=== PATIENT | female | born 1985 | race Caucasian/White ===

== ENCOUNTER 2016-07-10 17:23 | Emergency (ER) | payer MEDICARE, OTHER ==
[2016-07-10] MEDS ORDERED: LORazepam 2 MG/ML SYRINGE IV STA (17:41)
[2016-07-10] MEDS ORDERED: SODIUM CHLORIDE 0.9% 1,000 ML IV STA (17:41)
[2016-07-10 18:00] LABS: Basophils # (A) 0.1 k/uL (0-0.2); Basophils % (A) 1 %; CH 31.5; CHCM 33.2; Eosinophils # (A) 0.2 k/uL (0-0.7); Eosinophils % (A) 2 %; HCT 43.4 % (34.0-46.0); HDW 2.21; HGB 14.1 gm/dL (11.4-16.0); Luc # (Auto) 0.17; Luc % (Auto) 2; Lymphocytes # (A) 3.4 k/uL (1.0-4.8); Lymphocytes % (A) 36 %; MCHC 32.6 g/dL (31.0-37.0); MCV 95.2 fL (80.0-100.0); Mean Platelet Volume 6.2; Monocytes # (A) 0.4 k/uL (0-1.0); Monocytes % (A) 4 %; Neutrophils # (A) 5.3 k/uL (1.3-7.7); Neutrophils % (A) 56 %; RBC 4.55 m/uL (3.80-5.40); RDW 12.7 % (11.5-15.5); WBC 9.5 k/uL (3.8-10.6); WBC (Perox) 9.42
[2016-07-10 18:06] LABS: ALT 40 U/L (9-52); AST 23 U/L (14-36); Alkaline Phosphatase 73 U/L (38-126); Anion Gap 9 mmol/L; Blood Urea Nitrogen 6 mg/dL (7-17); Calcium 9.1 mg/dL (8.4-10.2); Carbon Dioxide 29 mmol/L (22-30); Chloride 104 mmol/L (98-107); Glucose 93 mg/dL (74-99); Non-African American GFR(MDRD) >60 (>60 ml/min/1.73 sqM); Potassium 3.6 mmol/L (3.5-5.1); Sodium 142 mmol/L (137-145); Total Bilirubin 0.5 mg/dL (0.2-1.3); Total Protein 7.1 g/dL (6.3-8.2)
--- NOTE | 2016-07-10 18:13 | ED ---
General Adult HPI - General Chief complaint: Seizure Stated complaint: seizure Time Seen by Provider: 07/10/16 17:41 Source: patient, family, RN/MD, RN notes reviewed, old records reviewed Mode of arrival: wheelchair Limitations: no limitations - History of Present Illness Initial comments: Chief complaint and history of present illness a 31-year-old female had a seizure while in emergency room. The patient is here because her sister who is also an epileptic was having a seizure. She became overly anxious and had a seizure lasted approximately 5 minutes. She was given 1 mg of Ativan and within 1 minute the patient was awake and no postictal state. Denying any headache or pain. Patient reports she has not missed any of her medications her last seizure was over a year and a half ago. - Related Data Home Medications Medication Instructions Recorded Confirmed Albuterol Sulfate [Proair Hfa] 2 puff INHALATION RT-Q4H PRN 03/01/14 07/10/16 Budesonide-Formot 160-4.5 Mcg 2 puff INHALATION RT-BID 03/01/14 07/10/16 [Symbicort 160-4.5 Mcg Inhaler] Lacosamide [Vimpat] 100 mg PO BID 03/01/14 07/10/16 Venlafaxine HCl [Effexor XR] 150 mg PO DAILY 03/01/14 07/10/16 Hydrocodone/Acetaminophen [[place] 1 tab PO Q6HR PRN 12/28/15 07/10/16 7.5-325] levETIRAcetam [Keppra] 750 mg PO TID 07/10/16 07/10/16 Allergies Allergy/AdvReac Type Severity Reaction Status Date / Time amoxicillin [Amoxicillin] Allergy Rash/Hives Verified 07/10/16 17:53 carbamazepine Allergy Unknown Verified 07/10/16 17:53 [From Carbatrol] iodine Allergy Chest Pain Verified 07/10/16 17:53 topiramate [From Topamax] Allergy Unknown Verified 07/10/16 17:53 venom-honey bee Allergy Anaphylaxis Verified 07/10/16 17:53 [bee venom (honey bee)] contrast media Allergy Chest Pain Uncoded 12/28/15 18:21 Review of Systems ROS Statement: Those systems with pertinent positive or pertinent negative responses have been documented in the HPI. Review of systems at this time no headache or visual acuity changes no chest pain or palpitations no abdominal pain no nausea vomiting or diarrhea. Denies any fatigue of late. All systems were otherwise reviewed. Past medical problems significant Past medical problems significant for asthma, seizure disorder which she takes Vimpat and Keppra. Also chronic back pain. Surgeries include appendectomy, back surgery, hysterectomy and foot surgery. Family history sister has epilepsy. Her ALLERGIES include amoxicillin carbamazepine, iodine, topiramate, knees and contrast media. ROS Other: All systems not noted in ROS Statement are negative. Past Medical History Past Medical History: Asthma, Seizure Disorder Additional Past Medical History / Comment(s): chronic back pain depression History of Any Multi-Drug Resistant Organisms: None Reported Past Surgical History: Appendectomy, Back Surgery, Hysterectomy Additional Past Surgical History / Comment(s): foot varicose veins Past Psychological History: Depression Smoking Status: Current every day smoker Past Alcohol Use History: None Reported Past Drug Use History: None Reported General Exam - General Exam Comments Initial Comments: General: The patient is awake and alert, in no distress, and does not appear acutely ill. Patient presented as a visitor and had a seizure while in emergency room. Seizure lasted 5 minutes. Stopped after 1 mg of Ativan. No postictal. Noted. The patient's vital signs show pulse 84 respiratory rate 18 pulse ox 97 % room air blood pressure 149/68. Mildly elevated systolic noted the patient just had a seizure. Eye: Pupils are equal, round and reactive to light, extra-ocular movements are intact ; there is normal conjunctiva bilaterally. No signs of icterus. Ears, nose, mouth and throat: There are moist mucous membranes and no oral lesions. Neck: The neck is supple, there is no tenderness or JVD. The patient had a Kemper collar placed and she was placed on a backboard once her seizure started. Once the seizure stopped patient asked for collar to be removed the collar was removed because she had no neck pain the neck was examined afterwards and she is not complaining of any pain. Patient was removed from the backboard as well. Cardiovascular: There is a regular rate and rhythm. No murmur, rub or gallop is appreciated. Respiratory: Lungs are clear to auscultation, respirations are non-labored, breath sounds are equal. No wheezes, stridor, rales, or rhonchi. Gastrointestinal: Soft, non-distended, non-tender abdomen without masses or organomegaly noted. There is no rebound or guarding present. No CVA tenderness. Bowel sounds are unremarkable. Back: There is no tenderness to palpation in the midline. There is no obvious deformity. No rashes noted. Musculoskeletal: Normal ROM, no tenderness, There is no pedal edema. There is no calf tenderness or swelling. Sensation intact. Pulses equal bilaterally 2+. Neurological: CN II-XII intact, There are no obvious motor or sensory deficits. Coordination appears grossly intact. Speech is normal. Neurologically intact after the seizure. Skin: Skin is warm and dry and no rashes or lesions are noted. Limitations: no limitations Course Vital Signs 07/10/16 17:35 Pulse Rate 84 Respiratory 18 Rate Blood Pressure 149/68 O2 Sat by Pulse 97 Oximetry EKG Findings - EKG Comments: EKG Findings:: EKG was done and reviewed at 17.4 showing normal sinus rhythm no acute ST elevation no ectopy no ischemic changes. Rate 67 NV interval is 142 QRS [address] QT [address] Ramírez Medical Decision Making - Medical Decision Making Medical decision making; patient's white count is 9.5 hemoglobin 14 hematocrit of 43, potassium 3.6 with a BUN 6 creatinine 0.7 and GFR greater than 60. Glucose 93. Patient's feeling better neurologically intact no headache or discomfort to her extremities. The plant this size for the patient be discharged home to care of family reminded that state law she cannot drive for 6 months after having had a seizure. Patient stated she understood. Advised to follow-up with her family doctor and neurologist. Continue with her medications. Get rest stridor stay away from stressful situations - Lab Data Result diagrams: 07/10/16 17:30 07/10/16 17:30 Lab Results 07/10/16 07/10/16 Range/Units 17:30 17:30 WBC 9.5 (3.8-10.6) k/uL RBC 4.55 (3.80-5.40) m/uL Hgb 14.1 (11.4-16.0) gm/dL Hct 43.4 (34.0-46.0) % MCV 95.2 (80.0-100.0) fL MCH 31.0 (25.0-35.0) pg MCHC 32.6 (31.0-37.0) g/dL RDW 12.7 (11.5-15.5) % Plt Count 311 (150-450) k/uL Neutrophils % 56 % Lymphocytes % 36 % Monocytes % 4 % Eosinophils % 2 % Basophils % 1 % Neutrophils # 5.3 (1.3-7.7) k/uL Lymphocytes # 3.4 (1.0-4.8) k/uL Monocytes # 0.4 (0-1.0) k/uL Eosinophils # 0.2 (0-0.7) k/uL Basophils # 0.1 (0-0.2) k/uL Sodium 142 (137-145) mmol/L Potassium 3.6 (3.5-5.1) mmol/L Chloride 104 (98-107) mmol/L Carbon Dioxide 29 (22-30) mmol/L Anion Gap 9 mmol/L BUN 6 L (7-17) mg/dL Creatinine 0.70 (0.52-1.04) mg/dL Est GFR (MDRD) Af Amer >60 (>60 ml/min/1.73 sqM) Est GFR (MDRD) Non-Af >60 (>60 ml/min/1.73 sqM) Glucose 93 (74-99) mg/dL Calcium 9.1 (8.4-10.2) mg/dL Total Bilirubin 0.5 (0.2-1.3) mg/dL AST 23 (14-36) U/L ALT 40 (9-52) U/L Alkaline Phosphatase 73 (38-126) U/L Total Protein 7.1 (6.3-8.2) g/dL Albumin 4.4 (3.5-5.0) g/dL Disposition Clinical Impression: Epileptic seizure Disposition: HOME SELF-CARE Condition: Fair Instructions: Recurrent Seizures in Adults (ED) Additional Instructions: Continue with home medications get adequate rest. Try to stay away from stressful situations. State law states no driving for 6 months after a seizure. Follow-up with family physician and your neurologist. Time of Disposition: 18:56
[2016-07-10 19:18] VITALS: BP 116/57; PULSE 81; RESP 16; TEMP 97.8
== END 2016-07-10 19:18 | disposition home or self-care (01) ==
LOC: EC 17:23
DX: G40.909 Epilepsy, unspecified, not intractable, without status epilepticus (principal); J45.909 Unspecified asthma, uncomplicated; F32.9 Major depressive disorder, single episode, unspecified; F17.200 Nicotine dependence, unspecified, uncomplicated; Z79.51 Long term (current) use of inhaled steroids; Z79.899 Other long term (current) drug therapy; Z88.0 Allergy status to penicillin; Z91.041 Radiographic dye allergy status; Z91.030 Bee allergy status; Z88.8 Allergy status to other drugs, medicaments and biological substances
CPT/HCPCS: 36415; 93005; 80053; 80177; 85025; 99284; 96374; J2060

== ENCOUNTER 2016-12-10 20:04 | Emergency (ER) | payer MEDICARE, OTHER ==
[2016-12-10 20:14] VITALS: TEMP 98
[2016-12-10 20:16] VITALS: RESP 20
[2016-12-10] MEDS ORDERED: LORazepam 2 MG/ML SYRINGE IV STA (20:20)
[2016-12-10] MEDS ORDERED: SODIUM CHLORIDE 0.9% 1,000 ML IV STA (20:20)
[2016-12-10 20:33] LABS: Basophils # (A) 0.1 k/uL (0-0.2); Basophils % (A) 1 %; CH 31.9; Eosinophils # (A) 0.2 k/uL (0-0.7); Eosinophils % (A) 2 %; HCT 38.8 % (34.0-46.0); HDW 2.22; Luc # (Auto) 0.15; Luc % (Auto) 1; Lymphocytes # (A) 3.5 k/uL (1.0-4.8); Lymphocytes % (A) 32 %; MCH 31.7 pg (25.0-35.0); MCHC 33.6 g/dL (31.0-37.0); MCV 94.3 fL (80.0-100.0); Mean Platelet Volume 6.5; Monocytes # (A) 0.5 k/uL (0-1.0); Monocytes % (A) 5 %; Neutrophils # (A) 6.4 k/uL (1.3-7.7); Neutrophils % (A) 59 %; RBC 4.11 m/uL (3.80-5.40); RDW 13.2 % (11.5-15.5); WBC 10.8 k/uL (3.8-10.6); WBC (Perox) 10.22
[2016-12-10 20:46] LABS: ALT 31 U/L (9-52); AST 16 U/L (14-36); Alkaline Phosphatase 56 U/L (38-126); Anion Gap 6 mmol/L; Blood Urea Nitrogen 11 mg/dL (7-17); Calcium 8.6 mg/dL (8.4-10.2); Carbon Dioxide 26 mmol/L (22-30); Chloride 109 mmol/L (98-107); Glucose 92 mg/dL (74-99); Non-African American GFR(MDRD) >60 (>60 ml/min/1.73 sqM); Potassium 3.8 mmol/L (3.5-5.1); Sodium 141 mmol/L (137-145); Total Bilirubin 0.4 mg/dL (0.2-1.3); Total Protein 6.1 g/dL (6.3-8.2)
--- NOTE | 2016-12-10 20:46 | ED ---
General Adult HPI - General Chief complaint: Seizure Stated complaint: Seizure Time Seen by Provider: 12/10/16 20:12 Source: patient, RN notes reviewed Mode of arrival: ambulatory Limitations: no limitations - History of Present Illness Initial comments: 31-year-old female presents to the emergency department with a chief complaint of seizure. Patient has a history of seizure. Patient states that she has not taken her Vimpat 2 days and today she had a seizure. Family states that she did fall and hit her head during the seizure. Patient does admit to mild headache. She has a neck pain or any other pain anywhere else. She states that she has been increased stress lately wishes also provoke or seizures. She has a nausea vomiting with this. She has a loss of bowel or bladder function with seizures. They were concerned due to her hitting her head so they thought that they should be evaluated. They state that her whole body was shaking. Patient denies any recent fever, chills, shortness of breath, chest pain, back pain, abdominal pain, nausea vomiting, numbness or tingling, dysuria or hematuria, constipation or diarrhea, headaches or visual changes, or any other current symptoms. - Related Data Home Medications Medication Instructions Recorded Confirmed Lacosamide [Vimpat] 100 mg PO BID 03/01/14 12/10/16 Hydrocodone/Acetaminophen [[place] 1 tab PO Q6HR PRN 12/28/15 12/10/16 7.5-325] Venlafaxine HCl [Effexor XR] 150 mg PO DAILY 12/10/16 12/10/16 levETIRAcetam [Keppra] 500 mg PO Q12HR 12/10/16 12/10/16 Allergies Allergy/AdvReac Type Severity Reaction Status Date / Time amoxicillin [Amoxicillin] Allergy Rash/Hives Verified 12/10/16 20:33 carbamazepine Allergy Unknown Verified 12/10/16 20:33 [From Carbatrol] iodine Allergy Chest Pain Verified 12/10/16 20:33 topiramate [From Topamax] Allergy Unknown Verified 12/10/16 20:33 venom-honey bee Allergy Anaphylaxis Verified 12/10/16 20:33 [bee venom (honey bee)] contrast media Allergy Chest Pain Uncoded 12/10/16 20:14 Review of Systems ROS Statement: Those systems with pertinent positive or pertinent negative responses have been documented in the HPI. ROS Other: All systems not noted in ROS Statement are negative. Past Medical History Past Medical History: Asthma, Seizure Disorder Additional Past Medical History / Comment(s): chronic back pain depression History of Any Multi-Drug Resistant Organisms: None Reported Past Surgical History: Appendectomy, Back Surgery, Hysterectomy Additional Past Surgical History / Comment(s): foot varicose veins Past Psychological History: Depression Smoking Status: Current every day smoker Past Alcohol Use History: None Reported Past Drug Use History: None Reported General Exam - General Exam Comments Initial Comments: General: The patient is awake and alert, in no distress, and does not appear acutely ill. Eye: Pupils are equal, round and reactive to light, extra-ocular movements are intact; there is normal conjunctiva bilaterally. No signs of icterus. Ears, nose, mouth and throat: There are moist mucous membranes. Neck: The neck is supple, there is no tenderness. Cardiovascular: There is a regular rate and rhythm. No murmur, rub or gallop is appreciated. Respiratory: Lungs are clear to auscultation, respirations are non-labored, breath sounds are equal. No wheezes, stridor, rales, or rhonchi. Gastrointestinal: Soft, non-distended, non-tender abdomen without masses or organomegaly noted. There is no rebound or guarding present. No CVA tenderness. Bowel sounds are unremarkable. Back: There is no tenderness to palpation in the midline. There is no obvious deformity. No rashes noted. Musculoskeletal: Normal ROM, no tenderness, There is no pedal edema. There is no calf tenderness or swelling. Sensation intact. Pulses equal bilaterally 2+. Neurological: CN II-XII intact, There are no obvious motor or sensory deficits. Coordination appears grossly intact. Speech is normal. Skin: Skin is warm and dry and no rashes or lesions are noted. Psychiatric: Cooperative, appropriate mood & affect, normal judgment. Limitations: no limitations Course Vital Signs 12/10/16 20:11 Temperature 98 F Pulse Rate 88 Respiratory 20 Rate Blood Pressure 118/59 O2 Sat by Pulse 97 Oximetry EKG Findings - EKG Comments: EKG Findings:: normal sinus rhythm 80 bpm, normal axis, no atopy, no S-T depressions or elevations, Medical Decision Making - Medical Decision Making 31-year-old female presents to the emergency Department chief complaint of seizure. At this time patient does have a history of seizures and this was much like her normal seizures. Lab work and imaging is reviewed and negative. We are pending seizure medication levels however she states that she did miss her Vimpat last 2 days. We did give her dose of her Vimpat as well as Ativan here. She is a follow-up with her neurologist and morning. We discussed no driving. We discussed return parameters and all questions. Patient stated that she understood she is given plan. She'll be discharged. - Lab Data Result diagrams: 12/10/16 20:23 12/10/16 20:23 Lab Results 12/10/16 12/10/16 Range/Units 20:23 20: WBC 10.8 H (3.8-10.6) k/uL RBC 4.11 (3.80-5.40) m/uL Hgb 13.0 (11.4-16.0) gm/dL Hct 38.8 (34.0-46.0) % MCV 94.3 (80.0-100.0) fL MCH 31.7 (25.0-35.0) pg MCHC 33.6 (31.0-37.0) g/dL RDW 13.2 (11.5-15.5) % Plt Count 309 (150-450) k/uL Neutrophils % 59 % Lymphocytes % 32 % Monocytes % 5 % Eosinophils % 2 % Basophils % 1 % Neutrophils # 6.4 (1.3-7.7) k/uL Lymphocytes # 3.5 (1.0-4.8) k/uL Monocytes # 0.5 (0-1.0) k/uL Eosinophils # 0.2 (0-0.7) k/uL Basophils # 0.1 (0-0.2) k/uL Sodium 141 (137-145) mmol/L Potassium 3.8 (3.5-5.1) mmol/L Chloride 109 H (98-107) mmol/L Carbon Dioxide 26 (22-30) mmol/L Anion Gap 6 mmol/L BUN 11 (7-17) mg/dL Creatinine 0.65 (0.52-1.04) mg/dL Est GFR (MDRD) Af Amer >60 (>60 ml/min/1.73 sqM) Est GFR (MDRD) Non-Af >60 (>60 ml/min/1.73 sqM) Glucose 92 (74-99) mg/dL Calcium 8.6 (8.4-10.2) mg/dL Total Bilirubin 0.4 (0.2-1.3) mg/dL AST 16 (14-36) U/L ALT 31 (9-52) U/L Alkaline Phosphatase 56 (38-126) U/L Total Protein 6.1 L (6.3-8.2) g/dL Albumin 3.7 (3.5-5.0) g/dL - Radiology Data Radiology results: report reviewed, image reviewed Disposition Clinical Impression: Generalized seizure Disposition: HOME SELF-CARE Condition: Stable Instructions: Recurrent Seizures in Adults (ED) Additional Instructions: Please use medication as discussed. Please follow up with family doctor if symptoms have not improved over the next two days. Please return to the emergency room if your symptoms increase or worsen or for any other concerns. Referrals: Harsha Price MD [Primary Care Provider] - 1-2 days Time of Disposition: 21:53
--- NOTE | 2016-12-10 21:01 | CT ---
EXAMINATION TYPE: CT brain wo con DATE OF EXAM: 12/10/2016 COMPARISON: 08/22/2015 HISTORY: Patient complains of seizure today with headache post seizure. Patient has a prior history of seizures. CT DLP: 791.8 mGycm. Automated Exposure Control for Dose Reduction was Utilized. TECHNIQUE: CT scan of the head is performed without contrast. FINDINGS: Ventricles of normal size. There is no mass effect nor midline shift. There is no sign of i ntracranial hemorrhage. The calvarium is intact. IMPRESSION: Negative head CT scan. No change.
[2016-12-10] MEDS ORDERED: LACOSAMIDE 50 MG TABLET PO STA (21:52)
[2016-12-10 22:09] VITALS: BP 132/71; PULSE 92
== END 2016-12-10 22:08 | disposition home or self-care (01) ==
LOC: EC 20:04
DX: G40.909 Epilepsy, unspecified, not intractable, without status epilepticus (principal); F32.9 Major depressive disorder, single episode, unspecified; F17.200 Nicotine dependence, unspecified, uncomplicated; Z88.0 Allergy status to penicillin; Z88.8 Allergy status to other drugs, medicaments and biological substances; Z91.030 Bee allergy status; Z91.041 Radiographic dye allergy status; Z91.048 Other nonmedicinal substance allergy status; Z79.899 Other long term (current) drug therapy
CPT/HCPCS: 99284; 96374; 96361 ×2; 36415; 93005; 80053; 80177; 85025; 70450; J2060

== ENCOUNTER 2016-12-14 12:48 | Emergency (ER) | payer MEDICARE, OTHER ==
[2016-12-14 12:54] VITALS: BP 123/70; PULSE 99; RESP 20; TEMP 97.9
--- NOTE | 2016-12-14 14:08 | ED ---
Wound/Laceration HPI - General Chief Complaint: Wound/Laceration Stated Complaint: Ankle Laceration Time Seen by Provider: 12/14/16 13:45 Source: patient, RN notes reviewed, old records reviewed Mode of arrival: ambulatory Limitations: no limitations - History of Present Illness Initial Comments: 31-year-old feel presenting ED chief complaint of a left ankle laceration. Patient reports that she was walking and tripped over the edge of a fish bowl. She reports that the glass broke and she cut her side of her ankle. She denies any difficulty with flexion or extension. Denies any peripheral paresthesias. She reports that she's had no other injuries. Denies stepping on any glass. Patient reports the bleeding is now well controlled. She is up-to-date on her tetanus vaccination. - Related Data Home Medications Medication Instructions Recorded Confirmed Lacosamide [Vimpat] 100 mg PO BID 03/01/14 12/10/16 Hydrocodone/Acetaminophen [[place] 1 tab PO Q6HR PRN 12/28/15 12/10/16 7.5-325] Venlafaxine HCl [Effexor XR] 150 mg PO DAILY 12/10/16 12/10/16 levETIRAcetam [Keppra] 500 mg PO Q12HR 12/10/16 12/10/16 Allergies Allergy/AdvReac Type Severity Reaction Status Date / Time amoxicillin [Amoxicillin] Allergy Rash/Hives Verified 12/14/16 12:54 carbamazepine Allergy Unknown Verified 12/14/16 12:54 [From Carbatrol] iodine Allergy Chest Pain Verified 12/14/16 12:54 topiramate [From Topamax] Allergy Unknown Verified 12/14/16 12:54 venom-honey bee Allergy Anaphylaxis Verified 12/14/16 12:54 [bee venom (honey bee)] contrast media Allergy Chest Pain Uncoded 12/14/16 12:54 Review of Systems ROS Statement: Those systems with pertinent positive or pertinent negative responses have been documented in the HPI. ROS Other: All systems not noted in ROS Statement are negative. Past Medical History Past Medical History: Asthma, Seizure Disorder Additional Past Medical History / Comment(s): chronic back pain depression History of Any Multi-Drug Resistant Organisms: None Reported Past Surgical History: Appendectomy, Back Surgery, Hysterectomy Additional Past Surgical History / Comment(s): foot varicose veins Past Psychological History: Depression Smoking Status: Current every day smoker Past Alcohol Use History: None Reported Past Drug Use History: None Reported General Exam - General Exam Comments Initial Comments: Patient is a 31 year old female, no acute distress. Limitations: no limitations General appearance: alert, in no apparent distress Head exam: Present: atraumatic, normocephalic, normal inspection Eye exam: Present: normal appearance, PERRL, EOMI. Absent: scleral icterus, conjunctival injection, periorbital swelling ENT exam: Present: normal exam, mucous membranes moist Neck exam: Present: normal inspection. Absent: tenderness, meningismus, lymphadenopathy Respiratory exam: Present: normal lung sounds bilaterally. Absent: respiratory distress, wheezes, rales, rhonchi, stridor Cardiovascular Exam: Present: regular rate, normal rhythm, normal heart sounds. Absent: systolic murmur, diastolic murmur, rubs, gallop, clicks GI/Abdominal exam: Present: soft, normal bowel sounds. Absent: distended, tenderness, guarding, rebound, rigid Extremities exam: Present: normal inspection, full ROM, normal capillary refill. Absent: tenderness, pedal edema, joint swelling, calf tenderness Back exam: Present: normal inspection Neurological exam: Present: alert, oriented X3, CN II-XII intact Psychiatric exam: Present: normal affect, normal mood Skin exam: Present: warm, dry, intact, normal color. Absent: rash Course Vital Signs 12/14/16 12:51 Temperature 97.9 F Pulse Rate 99 Respiratory 20 Rate Blood Pressure 123/70 O2 Sat by Pulse 99 Oximetry Medical Decision Making - Medical Decision Making History of female. No acute distress isn't with a ankle laceration after having cut on glass. She stepped on a fish bowl and the glass broke. She has no puncture wounds or pain over the sole of her foot. Patient's wound was thoroughly irrigated and cleaned. It was closed with 2 sutures. Discussed monitoring for any signs of infection including redness swelling or drainage. Patient agrees to keeping her sutures clean and understands treatment plan will comply. Return parameters were discussed. Disposition Clinical Impression: Laceration of right ankle Disposition: HOME SELF-CARE Condition: Good Instructions: Laceration (ED) Additional Instructions: Please return to the emergency room in 8-10 days to have sutures removed. Please leave wound covered for the first 24-48 hours and then leave open to air after that time. Please use clean soap and water to clean the suture area to prevent scabbing over the top of your sutures. Please watch for any signs of infection which may include but not limited to increased pain, swelling, redness , fever or chills. Please return to the emergency room if any signs of infection do occur. Please return to the emergency room for any other concerns or complications. Referrals: Harsha Price MD [Primary Care Provider] - 1-2 days Time of Disposition: 14:06
== END 2016-12-14 14:33 | disposition home or self-care (01) ==
LOC: EC 12:48
DX: S91.011A Laceration without foreign body, right ankle, initial encounter (principal); G40.909 Epilepsy, unspecified, not intractable, without status epilepticus; F32.9 Major depressive disorder, single episode, unspecified; F17.200 Nicotine dependence, unspecified, uncomplicated; Z88.0 Allergy status to penicillin; Z91.041 Radiographic dye allergy status; Z91.048 Other nonmedicinal substance allergy status; Z88.8 Allergy status to other drugs, medicaments and biological substances; Z91.030 Bee allergy status; Z79.899 Other long term (current) drug therapy; W25.XXXA Contact with sharp glass, initial encounter; Y93.01 Activity, walking, marching and hiking
CPT/HCPCS: 12001; 99283

== ENCOUNTER 2017-08-16 19:56 | Emergency (ER) | payer MEDICARE, OTHER ==
[2017-08-16 20:10] VITALS: TEMP 98.4
[2017-08-16] MEDS ORDERED: SODIUM CHLORIDE 0.9% 1,000 ML IV STA (20:36)
[2017-08-16] MEDS ORDERED: ONDANSETRON 4 MG/2 ML VIAL IVP STA (20:36)
--- NOTE | 2017-08-16 20:40 | ED ---
Nausea/Vomiting/Diarrhea HPI - General Chief complaint: Nausea/Vomiting/Diarrhea Stated complaint: nausea, diarrhea Time Seen by Provider: 08/16/17 20:31 Source: patient, RN notes reviewed Mode of arrival: ambulatory Limitations: no limitations - History of Present Illness Initial comments: This is a 32-year-old female who presents to the emergency department with chief complaint of nausea and diarrhea. Patient states that her symptoms began yesterday. She states that she has had fevers, nausea, diarrhea and body aches. She does report that her was diagnosed 5 days ago with influenza B and she is worried that she may have it as well. She denies abdominal pain, vomiting, constipation, difficulty breathing, dizziness or headache. She states that the last dose of ibuprofen she took was 2 hours ago. - Related Data Home Medications Medication Instructions Recorded Confirmed Lacosamide [Vimpat] 100 mg PO BID 03/01/14 08/16/17 Hydrocodone/Acetaminophen [[place] 1 tab PO Q6HR PRN 12/28/15 08/16/17 7.5-325] Venlafaxine HCl [Effexor XR] 150 mg PO DAILY 12/10/16 08/16/17 levETIRAcetam [Keppra] 500 mg PO Q12HR 12/10/16 08/16/17 Albuterol Inhaler [Ventolin Hfa 1 - 2 puff INHALATION RT-Q6H PRN 08/16/17 Inhaler] Budesonide/Formoterol Fumarate 2 puff INHALATION RT-BID 08/16/17 08/16/17 [Symbicort 160-4.5 Mcg Inhaler] Diazepam [Valium] 5 mg PO BID 08/16/17 08/16/17 Allergies Allergy/AdvReac Type Severity Reaction Status Date / Time amoxicillin [Amoxicillin] Allergy Rash/Hives Verified 08/16/17 20:28 azithromycin Allergy Unknown Verified 08/16/17 20:28 carbamazepine Allergy Unknown Verified 08/16/17 20:28 [From Carbatrol] iodine Allergy Chest Pain Verified 08/16/17 20:28 topiramate [From Topamax] Allergy Unknown Verified 08/16/17 20:28 venom-honey bee Allergy Anaphylaxis Verified 08/16/17 20:28 [bee venom (honey bee)] contrast media Allergy Chest Pain Uncoded 08/16/17 20:10 Review of Systems ROS Statement: Those systems with pertinent positive or pertinent negative responses have been documented in the HPI. ROS Other: All systems not noted in ROS Statement are negative. Past Medical History Past Medical History: Asthma, Seizure Disorder Additional Past Medical History / Comment(s): chronic back pain depression History of Any Multi-Drug Resistant Organisms: None Reported Past Surgical History: Appendectomy, Back Surgery, Hysterectomy Additional Past Surgical History / Comment(s): foot varicose veins Past Psychological History: Anxiety, Depression Smoking Status: Current every day smoker Past Alcohol Use History: None Reported Past Drug Use History: None Reported General Exam - General Exam Comments Initial Comments: General: Awake and alert, well-developed; in no apparent distress. is at bedside. HEENT: Head atraumatic, normocephalic. Pupils are equal, round and reactive to light. Extraocular movements intact. Oropharynx moist without erythema or exudate. Neck: Supple. Normal ROM. Cardiovascular: Regular rate and rhythm. No murmurs, rubs or gallops. Chest symmetrical. Respiratory: Lungs clear to auscultation bilaterally. No wheezes, rales or rhonchi. Normal respiratory effort with no use of accessory muscles. Abdomen: Soft, non-tender, non-distended. No rigidity, rebound or guarding. Normal bowel sounds in all 4 quadrants. Musculoskeletal: Normal ROM, no tenderness bilateral upper and lower extremities. Ambulating normally. Skin: [place], warm and dry without rashes or lesions. Neurological: Alert and oriented x3. CN II-XII grossly intact. Speech is fluent and answers are appropriate. No focal neuro deficits. Psychiatric: Normal mood and affect. No overt signs of depression or anxiety noted. Limitations: no limitations Course Vital Signs 08/16/17 08/16/17 20:08 21:10 Temperature 98.4 F Pulse Rate 104 H 68 Respiratory 18 19 Rate Blood Pressure 139/67 122/58 O2 Sat by Pulse 99 100 Oximetry Medical Decision Making - Medical Decision Making This is a 32-year-old female who presented to the emergency department with chief complaint of nausea and diarrhea x 1 day. Patient's vital signs are stable and she is afebrile. Patient does not complain of any abdominal pain and abdomen is soft and nontender to palpation. Patient is in no acute distress and is drinking a large cup of [employer]'s coffee at bedside. CBC, CMP, UA were unremarkable. Influenza was negative. Patient will be discharged home at this time. Recommended increasing fluid intake as well as taking Tylenol or Motrin as needed for fevers. Patient is in agreement with plan and voices understanding. All questions were answered. - Lab Data Result diagrams: 08/16/17 21:10 08/16/17 21:10 Lab Results 08/16/17 08/16/17 08/16/17 Range/Units 21:10 21:10 21:10 WBC 10.0 (3.8-10.6) k/uL RBC 4.71 (3.80-5.40) m/uL Hgb 14.6 (11.4-16.0) gm/dL Hct 42.6 (34.0-46.0) % MCV 90.3 (80.0-100.0) fL MCH 31.1 (25.0-35.0) pg MCHC 34.4 (31.0-37.0) g/dL RDW 12.5 (11.5-15.5) % Plt Count 348 (150-450) k/uL Neutrophils % 63 % Lymphocytes % 29 % Monocytes % 4 % Eosinophils % 2 % Basophils % 1 % Neutrophils # 6.3 (1.3-7.7) k/uL Lymphocytes # 2.9 (1.0-4.8) k/uL Monocytes # 0.4 (0-1.0) k/uL Eosinophils # 0.2 (0-0.7) k/uL Basophils # 0.1 (0-0.2) k/uL Sodium 141 (137-145) mmol/L Potassium 3.9 (3.5-5.1) mmol/L Chloride 105 (98-107) mmol/L Carbon Dioxide 26 (22-30) mmol/L Anion Gap 10 mmol/L BUN 7 (7-17) mg/dL Creatinine 0.65 (0.52-1.04) mg/dL Est GFR (CKD-EPI)AfAm >90 (>60 ml/min/1.73 sqM) Est GFR (CKD-EPI)NonAf >90 (>60 ml/min/1.73 sqM) Glucose 92 (74-99) mg/dL Calcium 9.2 (8.4-10.2) mg/dL Total Bilirubin 0.3 (0.2-1.3) mg/dL AST 20 (14-36) U/L ALT 29 (9-52) U/L Alkaline Phosphatase 62 (38-126) U/L Total Protein 6.8 (6.3-8.2) g/dL Albumin 4.0 (3.5-5.0) g/dL Urine Color Light Yellow Urine Appearance Clear (Clear) Urine pH 6.5 (5.0-8.0) Ur Specific [place] 1.003 (1.001-1.035) Urine Protein Negative (Negative) Urine Glucose (UA) Negative (Negative) Urine Ketones Negative (Negative) Urine Blood Small H (Negative) Urine Nitrite Negative (Negative) Urine Bilirubin Negative (Negative) Urine Urobilinogen <2.0 (<2.0) mg/dL Ur Leukocyte Esterase Negative (Negative) Urine RBC 1 (0-5) /hpf Urine WBC <1 (0-5) /hpf Ur Squamous Epith Cells 1 (0-4) /hpf Urine Bacteria Rare H (None) /hpf Urine HCG, Qual (Not Detectd) Influenza Type A RNA (Not Detectd) Influenza Type B (PCR) (Not Detectd) 08/16/17 08/16/17 Range/Units 21:10 21:10 WBC (3.8-10.6) k/uL RBC (3.80-5.40) m/uL Hgb (11.4-16.0) gm/dL Hct (34.0-46.0) % MCV (80.0-100.0) fL MCH (25.0-35.0) pg MCHC (31.0-37.0) g/dL RDW (11.5-15.5) % Plt Count (150-450) k/uL Neutrophils % % Lymphocytes % % Monocytes % % Eosinophils % % Basophils % % Neutrophils # (1.3-7.7) k/uL Lymphocytes # (1.0-4.8) k/uL Monocytes # (0-1.0) k/uL Eosinophils # (0-0.7) k/uL Basophils # (0-0.2) k/uL Sodium (137-145) mmol/L Potassium (3.5-5.1) mmol/L Chloride (98-107) mmol/L Carbon Dioxide (22-30) mmol/L Anion Gap mmol/L BUN (7-17) mg/dL Creatinine (0.52-1.04) mg/dL Est GFR (CKD-EPI)AfAm (>60 ml/min/1.73 sqM) Est GFR (CKD-EPI)NonAf (>60 ml/min/1.73 sqM) Glucose (74-99) mg/dL Calcium (8.4-10.2) mg/dL Total Bilirubin (0.2-1.3) mg/dL AST (14-36) U/L ALT (9-52) U/L Alkaline Phosphatase (38-126) U/L Total Protein (6.3-8.2) g/dL Albumin (3.5-5.0) g/dL Urine Color Urine Appearance (Clear) Urine pH (5.0-8.0) Ur Specific [place] (1.001-1.035) Urine Protein (Negative) Urine Glucose (UA) (Negative) Urine Ketones (Negative) Urine Blood (Negative) Urine Nitrite (Negative) Urine Bilirubin (Negative) Urine Urobilinogen (<2.0) mg/dL Ur Leukocyte Esterase (Negative) Urine RBC (0-5) /hpf Urine WBC (0-5) /hpf Ur Squamous Epith Cells (0-4) /hpf Urine Bacteria (None) /hpf Urine HCG, Qual Not Detected (Not Detectd) Influenza Type A RNA Not Detected (Not Detectd) Influenza Type B (PCR) Not Detected (Not Detectd) Disposition Clinical Impression: Nausea, Diarrhea Disposition: HOME SELF-CARE Condition: Good Instructions: Acute Nausea and Vomiting (ED), Acute Diarrhea (ED) Additional Instructions: Please increase fluid intake. Please treat fevers by taking Tylenol and/or Motrin. Please follow up with primary care provider within 1-2 days. Return to emergency department if symptoms should worsen or any concerns arise. Referrals: Harsha Price MD [Primary Care Provider] - 1-2 days Time of Disposition: 21:59
[2017-08-16 21:31] LABS: Basophils # (A) 0.1 k/uL (0-0.2); Basophils % (A) 1 %; Eosinophils # (A) 0.2 k/uL (0-0.7); Eosinophils % (A) 2 %; HCT 42.6 % (34.0-46.0); HGB 14.6 gm/dL (11.4-16.0); Lymphocytes # (A) 2.9 k/uL (1.0-4.8); Lymphocytes % (A) 29 %; MCH 31.1 pg (25.0-35.0); MCHC 34.4 g/dL (31.0-37.0); MCV 90.3 fL (80.0-100.0); Mean Platelet Volume 5.9; Monocytes # (A) 0.4 k/uL (0-1.0); Monocytes % (A) 4 %; Neutrophils # (A) 6.3 k/uL (1.3-7.7); Neutrophils % (A) 63 %; Platelet Count 348 k/uL (150-450); RBC 4.71 m/uL (3.80-5.40); RDW 12.5 % (11.5-15.5)
[2017-08-16 21:32] LABS: Appearance,Urine Clear (Clear); Bacteria,Urine Rare /hpf; Bilirubin,Urine Negative (Negative); Blood,Urine Small (Negative); Color,Urine Light Yellow; Glucose,Urine (UA) Negative (Negative); Ketones,Urine Negative (Negative); Leukocyte Esterase,Urine Negative (Negative); Nitrite,Urine Negative (Negative); PH, Urine 6.5 (5.0-8.0); Protein,Urine Negative (Negative); RBC,Urine 1 /hpf (0-5); Specific Gravity,Urine 1.003 (1.001-1.035); Squamous Epithelial Cell,Urine 1 /hpf (0-4); Urobilinogen,Urine <2.0 mg/dL (<2.0); WBC,Urine <1 /hpf (0-5)
[2017-08-16 21:39] LABS: ALT 29 U/L (9-52); AST 20 U/L (14-36); Alkaline Phosphatase 62 U/L (38-126); Anion Gap 10 mmol/L; Blood Urea Nitrogen 7 mg/dL (7-17); Calcium 9.2 mg/dL (8.4-10.2); Carbon Dioxide 26 mmol/L (22-30); Chloride 105 mmol/L (98-107); Glucose 92 mg/dL (74-99); Potassium 3.9 mmol/L (3.5-5.1); Sodium 141 mmol/L (137-145); Total Bilirubin 0.3 mg/dL (0.2-1.3); Total Protein 6.8 g/dL (6.3-8.2)
[2017-08-16 21:51] VITALS: BP 122/58; PULSE 68; RESP 19
== END 2017-08-16 22:10 | disposition home or self-care (01) ==
LOC: EC 19:56
DX: R11.0 Nausea (principal); R19.7 Diarrhea, unspecified; J45.909 Unspecified asthma, uncomplicated; G40.909 Epilepsy, unspecified, not intractable, without status epilepticus; F41.9 Anxiety disorder, unspecified; F32.9 Major depressive disorder, single episode, unspecified; F17.200 Nicotine dependence, unspecified, uncomplicated; Z79.51 Long term (current) use of inhaled steroids; Z79.899 Other long term (current) drug therapy; Z88.0 Allergy status to penicillin; Z88.1 Allergy status to other antibiotic agents; Z88.8 Allergy status to other drugs, medicaments and biological substances; Z91.048 Other nonmedicinal substance allergy status; Z91.030 Bee allergy status; Z91.041 Radiographic dye allergy status
CPT/HCPCS: 36415; 80053; 81001; 81025; 85025; 87502; 96374; 99284

== ENCOUNTER 2017-09-10 18:56 | Emergency (ER) | payer MEDICARE, OTHER ==
[2017-09-10 18:59] VITALS: BP 145/63; PULSE 75; RESP 18; TEMP 98.7
--- NOTE | 2017-09-10 19:15 | ED ---
Extremity Problem HPI - General Chief complaint: Extremity Problem,Nontraumatic Stated complaint: Finger Swelling Time Seen by Provider: 09/10/17 19:09 Source: patient, RN notes reviewed Mode of arrival: ambulatory Limitations: no limitations - History of Present Illness Initial comments: This is a 32-year-old female who presents to the emergency department with chief complaint of finger swelling and pain. Patient states that she developed pain and swelling to her right middle finger 3 days ago. She states that she has difficulty moving the finger due to pain. She states that the pain is a constant throbbing sensation. She denies any specific injuries or trauma. She states she is unsure if she injured it while she was rearranging her house. States pain is made worse with movement of the finger. Denies fever, chills, chest pain, shortness of breath, abdominal pain, nausea or vomiting,numbness or tingling, headache or vision changes. - Related Data Home Medications Medication Instructions Recorded Confirmed Lacosamide [Vimpat] 100 mg PO BID 03/01/14 08/16/17 Hydrocodone/Acetaminophen [[place] 1 tab PO Q6HR PRN 12/28/15 08/16/17 7.5-325] Venlafaxine HCl [Effexor XR] 150 mg PO DAILY 12/10/16 08/16/17 levETIRAcetam [Keppra] 500 mg PO Q12HR 12/10/16 08/16/17 Albuterol Inhaler [Ventolin Hfa 1 - 2 puff INHALATION RT-Q6H PRN 08/16/17 Inhaler] Budesonide/Formoterol Fumarate 2 puff INHALATION RT-BID 08/16/17 08/16/17 [Symbicort 160-4.5 Mcg Inhaler] Diazepam [Valium] 5 mg PO BID 08/16/17 08/16/17 Allergies Allergy/AdvReac Type Severity Reaction Status Date / Time amoxicillin [Amoxicillin] Allergy Rash/Hives Verified 09/10/17 19:00 azithromycin Allergy Unknown Verified 09/10/17 19:00 carbamazepine Allergy Unknown Verified 09/10/17 19:00 [From Carbatrol] iodine Allergy Chest Pain Verified 09/10/17 19:00 topiramate [From Topamax] Allergy Unknown Verified 09/10/17 19:00 venom-honey bee Allergy Anaphylaxis Verified 09/10/17 19:00 [bee venom (honey bee)] contrast media Allergy Chest Pain Uncoded 09/10/17 19:00 Review of Systems ROS Statement: Those systems with pertinent positive or pertinent negative responses have been documented in the HPI. ROS Other: All systems not noted in ROS Statement are negative. Past Medical History Past Medical History: Asthma, Seizure Disorder Additional Past Medical History / Comment(s): chronic back pain, depression History of Any Multi-Drug Resistant Organisms: None Reported Past Surgical History: Appendectomy, Back Surgery, Hysterectomy Additional Past Surgical History / Comment(s): foot varicose veins Past Psychological History: Anxiety, Depression Smoking Status: Current every day smoker Past Alcohol Use History: None Reported Past Drug Use History: None Reported General Exam - General Exam Comments Initial Comments: General: Awake and alert, well-developed; in no apparent distress. HEENT: Head atraumatic, normocephalic. Pupils are equal, round and reactive to light. Extraocular movements intact. Oropharynx moist without erythema or exudate. Neck: Supple. Normal ROM. Cardiovascular: Regular rate and rhythm. No murmurs, rubs or gallops. Chest symmetrical. Respiratory: Lungs clear to auscultation bilaterally. No wheezes, rales or rhonchi. Normal respiratory effort with no use of accessory muscles. Musculoskeletal: Limited range of motion of PIP and DIP joints of the right middle phalanx due to pain. There is swelling and tenderness noted at the PIP joint. Sensation is intact. Radial pulses are 2+ equal and palpable bilaterally. Skin: [place], warm and dry without rashes or lesions. Neurological: Alert and oriented x3. CN II-XII grossly intact. Speech is fluent and answers are appropriate. No focal neuro deficits. Psychiatric: Normal mood and affect. No overt signs of depression or anxiety noted. Limitations: no limitations Course Vital Signs 09/10/17 18:57 Temperature 98.7 F Pulse Rate 75 Respiratory 18 Rate Blood Pressure 145/63 O2 Sat by Pulse 97 Oximetry Procedures - Orthopedic Splinting/Casting Injury #1 Side: right Upper Extremity Injury Location: finger (3rd phalanx) Upper Extremity Immobilizer: finger (other) Medical Decision Making - Medical Decision Making This is a 33-year-old female who presents to the emergency department with chief complaint of right middle digit swelling and pain. Patient denies any specific injury or trauma. She states that she has difficulty moving the finger due to pain. She does have limited range of motion of the joints of the right middle finger due to pain. Swelling and tenderness noted at the PIP joint. She is neurovascularly intact. X-ray revealed no acute fractures or dislocations. Based on physical examination it appears patient has a sprain or tendinitis to the flexor tendon. Finger splint was applied. Patient tolerated well without complication. I recommended following up with her primary care provider and she will be provided with contact information for follow-up with orthopedics. Patient is in no acute distress and will be discharged home at this time. She is in agreement with plan and voices understanding. All questions were answered. - Radiology Data Radiology results: report reviewed X-ray right finger impression: Soft tissue swelling around the PIP joint. No fracture seen. Disposition Clinical Impression: Finger pain, right Disposition: HOME SELF-CARE Condition: Good Instructions: Tendinitis (ED), Finger Sprain (ED) Additional Instructions: Please rest, ice and use finger splint. Please follow up with Dr. Guerra of [facility] if no improvement in symptoms. May take ibuprofen 600 mg every 6 hours as needed. Please follow up with primary care provider within 1-2 days. Return to emergency department if symptoms should worsen or any concerns arise. Is patient prescribed a controlled substance at d/c from ED?: No Referrals: Harsha Price MD [Primary Care Provider] - 1-2 days Oral Guerra MD [STAFF PHYSICIAN] - 1-2 days Time of Disposition: 19:54
--- NOTE | 2017-09-10 19:39 | XR ---
EXAMINATION TYPE: XR finger RT DATE OF EXAM: 09/10/2017 COMPARISON: NONE HISTORY: Pain and swelling TECHNIQUE: 3 views right middle finger FINDINGS: I see no fracture nor dislocation. There is soft tissue swelling around the PIP joint. Join t spaces are normal. IMPRESSION: Soft tissue swelling. No fracture seen.
== END 2017-09-10 20:08 | disposition home or self-care (01) ==
LOC: EC 18:56
DX: M79.644 Pain in right finger(s) (principal); J45.909 Unspecified asthma, uncomplicated; G40.909 Epilepsy, unspecified, not intractable, without status epilepticus; F32.9 Major depressive disorder, single episode, unspecified; F41.9 Anxiety disorder, unspecified; F17.200 Nicotine dependence, unspecified, uncomplicated; Z79.51 Long term (current) use of inhaled steroids; Z79.899 Other long term (current) drug therapy; Z88.0 Allergy status to penicillin; Z88.1 Allergy status to other antibiotic agents; Z88.8 Allergy status to other drugs, medicaments and biological substances; Z91.030 Bee allergy status; Z91.041 Radiographic dye allergy status; Z91.048 Other nonmedicinal substance allergy status
CPT/HCPCS: 99283

== ENCOUNTER 2017-09-23 23:52 | Emergency (ER) | payer MEDICARE, OTHER ==
[2017-09-24] VITALS: RESP 20
[2017-09-24 00:39] LABS: Basophils % (A) 0 %; Eosinophils # (A) 0.1 k/uL (0-0.7); Eosinophils % (A) 1 %; HCT 41.1 % (34.0-46.0); HGB 13.7 gm/dL (11.4-16.0); Lymphocytes # (A) 2.5 k/uL (1.0-4.8); Lymphocytes % (A) 19 %; MCH 30.3 pg (25.0-35.0); MCHC 33.4 g/dL (31.0-37.0); MCV 90.9 fL (80.0-100.0); Mean Platelet Volume 6.6; Monocytes # (A) 0.7 k/uL (0-1.0); Monocytes % (A) 5 %; Neutrophils # (A) 9.7 k/uL (1.3-7.7); Neutrophils % (A) 74 %; Platelet Count 330 k/uL (150-450); RBC 4.52 m/uL (3.80-5.40); RDW 12.5 % (11.5-15.5); WBC 13.2 k/uL (3.8-10.6)
[2017-09-24 00:45] LABS: ALT 21 U/L (9-52); AST 19 U/L (14-36); Albumin 4.2 g/dL (3.5-5.0); Alcohol <10 mg/dL; Alkaline Phosphatase 66 U/L (38-126); Anion Gap 15 mmol/L; Blood Urea Nitrogen 8 mg/dL (7-17); Calcium 9.1 mg/dL (8.4-10.2); Carbon Dioxide 25 mmol/L (22-30); Chloride 105 mmol/L (98-107); Glucose 110 mg/dL (74-99); Potassium 3.5 mmol/L (3.5-5.1); Sodium 145 mmol/L (137-145); Total Bilirubin 0.5 mg/dL (0.2-1.3); Total Protein 6.9 g/dL (6.3-8.2)
--- NOTE | 2017-09-24 01:01 | ED ---
Seizure HPI - General Chief Complaint: Seizure Stated Complaint: seizure Time Seen by Provider: 09/24/17 00:00 Source: EMS Mode of arrival: EMS Limitations: no limitations - History of Present Illness Initial Comments: This patient's a 32-year-old woman with history of seizure disorder who presents to be evaluated after she had a seizure tonight. The patient states that she had been stopped by police and that the stress and the flashing lights appeared to have caused seizure. Was reported by bystanders that she had generalized tonic-clonic movements and then had a what sounds like postictal period. MD Complaint: seizure -: minutes(s) Description of Episode: loss of consciousness, tonic-clonic movement, post- event confusion -: second(s) Witnessed: yes - by bystander Trauma: No Seizure History: known seizure disorder Place: street/outdoors Possible Precipitating Event: stress Associated Symptoms: denies other symptoms Treatments Prior to Arrival: none - Related Data Home Medications Medication Instructions Recorded Confirmed Lacosamide [Vimpat] 100 mg PO BID 03/01/14 08/16/17 Venlafaxine HCl [Effexor XR] 150 mg PO DAILY 12/10/16 08/16/17 levETIRAcetam [Keppra] 500 mg PO Q12HR 12/10/16 08/16/17 Albuterol Inhaler [Ventolin Hfa 1 - 2 puff INHALATION RT-Q6H PRN 08/16/17 Inhaler] Budesonide/Formoterol Fumarate 2 puff INHALATION RT-BID 08/16/17 08/16/17 [Symbicort 160-4.5 Mcg Inhaler] Diazepam [Valium] 5 mg PO BID 08/16/17 08/16/17 HYDROcodone/APAP 5-325MG [[place] 1 tab PO Q6HR PRN 09/24/17 09/24/17 5-325] Allergies Allergy/AdvReac Type Severity Reaction Status Date / Time amoxicillin [Amoxicillin] Allergy Rash/Hives Verified 09/10/17 19:00 azithromycin Allergy Unknown Verified 09/10/17 19:00 carbamazepine Allergy Unknown Verified 09/10/17 19:00 [From Carbatrol] iodine Allergy Chest Pain Verified 09/10/17 19:00 topiramate [From Topamax] Allergy Unknown Verified 09/10/17 19:00 venom-honey bee Allergy Anaphylaxis Verified 09/10/17 19:00 [bee venom (honey bee)] contrast media Allergy Chest Pain Uncoded 09/10/17 19:00 Review of Systems ROS Statement: Those systems with pertinent positive or pertinent negative responses have been documented in the HPI. ROS Other: All systems not noted in ROS Statement are negative. Constitutional: Denies: fever, chills, weakness Eyes: Denies: vision change Respiratory: Denies: cough, dyspnea Cardiovascular: Denies: chest pain, palpitations, edema, syncope Gastrointestinal: Denies: abdominal pain, nausea, vomiting Genitourinary: Denies: dysuria, hematuria Musculoskeletal: Denies: back pain Skin: Denies: rash Neurological: Denies: headache, weakness, numbness, paresthesias Past Medical History Past Medical History: Asthma, Seizure Disorder Additional Past Medical History / Comment(s): chronic back pain, depression History of Any Multi-Drug Resistant Organisms: None Reported Past Surgical History: Appendectomy, Back Surgery, Hysterectomy Additional Past Surgical History / Comment(s): foot varicose veins Past Psychological History: Anxiety, Depression Smoking Status: Current every day smoker Past Alcohol Use History: None Reported Past Drug Use History: None Reported General Exam Limitations: no limitations General appearance: alert, in no apparent distress Head exam: Present: atraumatic, normocephalic Eye exam: Present: normal appearance, PERRL, EOMI. Absent: scleral icterus, conjunctival injection, nystagmus ENT exam: Present: normal oropharynx Neck exam: Present: normal inspection, full ROM. Absent: tenderness, meningismus Respiratory exam: Present: normal lung sounds bilaterally. Absent: respiratory distress, wheezes, rales, rhonchi, stridor Cardiovascular Exam: Present: regular rate, normal rhythm, normal heart sounds. Absent: systolic murmur, diastolic murmur, rubs, gallop GI/Abdominal exam: Present: soft. Absent: distended, tenderness, guarding, rebound Extremities exam: Present: normal inspection, normal capillary refill. Absent: pedal edema, calf tenderness Back exam: Present: normal inspection. Absent: CVA tenderness (R), CVA tenderness (L) Neurological exam: Present: alert, oriented X3, CN II-XII intact, normal gait. Absent: motor sensory deficit Skin exam: Present: warm, dry, intact, normal color. Absent: rash Course Vital Signs 05/06/18 23:54 Temperature 97.9 F Pulse Rate 91 Respiratory 20 Rate Blood Pressure 131/72 O2 Sat by Pulse 98 Oximetry Medical Decision Making - Lab Data Result diagrams: 09/24/17 00:01 09/24/17 00:01 Lab Results 09/24/17 09/24/17 Range/Units 00:01 00:01 WBC 13.2 H (3.8-10.6) k/uL RBC 4.52 (3.80-5.40) m/uL Hgb 13.7 (11.4-16.0) gm/dL Hct 41.1 (34.0-46.0) % MCV 90.9 (80.0-100.0) fL MCH 30.3 (25.0-35.0) pg MCHC 33.4 (31.0-37.0) g/dL RDW 12.5 (11.5-15.5) % Plt Count 330 (150-450) k/uL Neutrophils % 74 % Lymphocytes % 19 % Monocytes % 5 % Eosinophils % 1 % Basophils % 0 % Neutrophils # 9.7 H (1.3-7.7) k/uL Lymphocytes # 2.5 (1.0-4.8) k/uL Monocytes # 0.7 (0-1.0) k/uL Eosinophils # 0.1 (0-0.7) k/uL Basophils # 0.0 (0-0.2) k/uL Sodium 145 (137-145) mmol/L Potassium 3.5 (3.5-5.1) mmol/L Chloride 105 (98-107) mmol/L Carbon Dioxide 25 (22-30) mmol/L Anion Gap 15 mmol/L BUN 8 (7-17) mg/dL Creatinine 0.80 (0.52-1.04) mg/dL Est GFR (CKD-EPI)AfAm >90 (>60 ml/min/1.73 sqM) Est GFR (CKD-EPI)NonAf >90 (>60 ml/min/1.73 sqM) Glucose 110 H (74-99) mg/dL Calcium 9.1 (8.4-10.2) mg/dL Total Bilirubin 0.5 (0.2-1.3) mg/dL AST 19 (14-36) U/L ALT 21 (9-52) U/L Alkaline Phosphatase 66 (38-126) U/L Total Protein 6.9 (6.3-8.2) g/dL Albumin 4.2 (3.5-5.0) g/dL Serum Alcohol <10 mg/dL Disposition Clinical Impression: Generalized seizure Disposition: HOME SELF-CARE Condition: Good Instructions: Recurrent Seizures in Adults (ED) Is patient prescribed a controlled substance at d/c from ED?: No Referrals: Harsha Price MD [Primary Care Provider] - 1-2 days
[2017-09-24 02:04] VITALS: BP 130/66; PULSE 89; TEMP 98.1
== END 2017-09-24 02:05 | disposition home or self-care (01) ==
LOC: EC 23:52
DX: G40.409 Other generalized epilepsy and epileptic syndromes, not intractable, without status epilepticus (principal); J45.909 Unspecified asthma, uncomplicated; F32.9 Major depressive disorder, single episode, unspecified; F41.9 Anxiety disorder, unspecified; F17.200 Nicotine dependence, unspecified, uncomplicated; Z79.51 Long term (current) use of inhaled steroids; Z79.899 Other long term (current) drug therapy; Z88.0 Allergy status to penicillin; Z88.1 Allergy status to other antibiotic agents; Z88.8 Allergy status to other drugs, medicaments and biological substances; Z91.030 Bee allergy status; Z91.041 Radiographic dye allergy status; Z91.048 Other nonmedicinal substance allergy status
CPT/HCPCS: 36415; 80053; 80320; 85025; 93005; 99284

== ENCOUNTER 2018-03-23 20:52 | Emergency (ER) | payer MEDICARE, OTHER ==
[2018-03-23 20:59] VITALS: TEMP 98.6
[2018-03-23] MEDS ORDERED: METOCLOPRAMIDE 5 MG/ML 2 ML VIAL IVP STA (21:27)
[2018-03-23] MEDS ORDERED: diphenhydrAMINE 50 MG/ML 1 ML VIAL IVP STA (21:27)
[2018-03-23] MEDS ORDERED: KETOROLAC 30 MG/ML 1 ML VIAL IVP STA (21:27)
--- NOTE | 2018-03-23 21:35 | ED ---
General Adult HPI - General Chief complaint: ENT Stated complaint: HANSON Time Seen by Provider: 03/23/18 21:09 Source: patient Mode of arrival: ambulatory Limitations: no limitations - History of Present Illness Initial comments: 32-year-old female patient presents to the emergency department today with complaints of voice hoarseness and swelling to the left side of her neck. Patient states that she lost her voice approximately one week ago then started to develop swelling to the left side of the neck. Patient states that the area has been becoming larger and becoming painful. She states that she can feel the area when she swallows. She denies any difficulty with swallowing or sore throat. She denies any fevers or chills with this. Patient states that she did develop a severe headache today. States that the pain is all over and throbbing. States she is sensitive to light and sound. States she does have a history of migraines with this headache is different. She denies any blurred vision, double vision, nausea, or vomiting. Patient states that she is having some tingling to her lower extremities but she does have history of low back pain and back surgery. She denies any saddle anesthesia or loss of bowel or bladder control. Patient denies any recent rash, shortness breath, chest pain, abdominal pain, diarrhea, constipation, hematuria, dysuria, urinary urgency, urinary frequency, or any other complaints. - Related Data Home Medications Medication Instructions Recorded Confirmed Lacosamide [Vimpat] 100 mg PO BID 03/01/14 08/16/17 Venlafaxine HCl [Effexor XR] 150 mg PO DAILY 12/10/16 08/16/17 levETIRAcetam [Keppra] 500 mg PO Q12HR 12/10/16 08/16/17 Albuterol Inhaler [Ventolin Hfa 1 - 2 puff INHALATION RT-Q6H PRN 08/16/17 Inhaler] Budesonide/Formoterol Fumarate 2 puff INHALATION RT-BID 08/16/17 08/16/17 [Symbicort 160-4.5 Mcg Inhaler] Diazepam [Valium] 5 mg PO BID 08/16/17 08/16/17 HYDROcodone/APAP 5-325MG [[place] 1 tab PO Q6HR PRN 09/24/17 09/24/17 5-325] Previous Rx's Medication Instructions Recorded Clindamycin HCl 300 mg PO Q8HR #30 cap 03/23/18 Allergies Allergy/AdvReac Type Severity Reaction Status Date / Time amoxicillin [Amoxicillin] Allergy Rash/Hives Verified 03/23/18 20:59 azithromycin Allergy Unknown Verified 03/23/18 20:59 carbamazepine Allergy Unknown Verified 03/23/18 20:59 [From Carbatrol] iodine Allergy Chest Pain Verified 03/23/18 20:59 topiramate [From Topamax] Allergy Unknown Verified 03/23/18 20:59 venom-honey bee Allergy Anaphylaxis Verified 03/23/18 20:59 [bee venom (honey bee)] contrast media Allergy Chest Pain Uncoded 03/23/18 20:59 Review of Systems ROS Statement: Those systems with pertinent positive or pertinent negative responses have been documented in the HPI. ROS Other: All systems not noted in ROS Statement are negative. Past Medical History Past Medical History: Asthma, Seizure Disorder Additional Past Medical History / Comment(s): chronic back pain, depression History of Any Multi-Drug Resistant Organisms: None Reported Past Surgical History: Appendectomy, Back Surgery, Hysterectomy Additional Past Surgical History / Comment(s): foot varicose veins Past Psychological History: Anxiety, Depression Smoking Status: Current every day smoker Past Alcohol Use History: None Reported Past Drug Use History: None Reported General Exam Limitations: no limitations General appearance: alert, in no apparent distress, other (. a well-developed , well-nourished adult female patient in no acute distress. Vital signs upon presentation are temperature 98.6F, pulse 92, respirations 18, blood pressure 157/88, pulse ox 92% on room air.) Eye exam: Present: normal appearance, PERRL, EOMI. Absent: scleral icterus, conjunctival injection, periorbital swelling ENT exam: Present: normal exam, normal oropharynx, mucous membranes moist Neck exam: Present: lymphadenopathy (Patient has a mass to the left submandibular region. Area is tender to touch. No erythema.). Absent: normal inspection, tenderness, meningismus Respiratory exam: Present: normal lung sounds bilaterally. Absent: respiratory distress, wheezes, rales, rhonchi, stridor Cardiovascular Exam: Present: regular rate, normal rhythm, normal heart sounds. Absent: systolic murmur, diastolic murmur, rubs, gallop, clicks GI/Abdominal exam: Present: soft, normal bowel sounds. Absent: distended, tenderness, guarding, rebound, rigid Neurological exam: Present: alert, oriented X3, CN II-XII intact, other ( Strength in all 4 extremities is 5/5.) Psychiatric exam: Present: normal affect, normal mood Skin exam: Present: warm, dry, intact, normal color. Absent: rash Course Vital Signs 03/23/18 03/23/18 03/24/18 20:56 22:52 00:03 Temperature 98.6 F Pulse Rate 92 81 85 Respiratory 18 16 16 Rate Blood Pressure 157/88 115/70 124/77 O2 Sat by Pulse 92 L 100 95 Oximetry Medical Decision Making - Medical Decision Making 32-year-old female patient presents to the emergency department today with complaints of hoarse voice, left-sided neck swelling, and migraine headache. Patient reported that the headache was worse and she's ever had before. Labs reviewed and did reveal mildly elevated white blood cell count at 11.4. CT brain was obtained and showed no acute intracranial abnormalities. CT soft tissues of the neck did show evidence of tonsillitis but no other abnormalities. I did discuss findings and results with the patient. Given patient's symptoms with the swelling in the neck we will treat for tonsillitis, she does have multiple ALLERGIES we will treat with clindamycin. She is instructed to follow-up with the chief nuclear medicine technologist for recheck as soon as possible. She is instructed to follow-up with her primary care physician for recheck in 1-2 days. Return parameters discussed in detail. She verbalizes understanding and agrees with this plan. - Lab Data Result diagrams: 03/23/18 22:05 03/23/18 22:05 Lab Results 03/23/18 03/23/18 Range/Units 22:05 22:05 WBC 11.4 H (3.8-10.6) k/uL RBC 4.32 (3.80-5.40) m/uL Hgb 13.5 (11.4-16.0) gm/dL Hct 40.4 (34.0-46.0) % MCV 93.3 (80.0-100.0) fL MCH 31.3 (25.0-35.0) pg MCHC 33.5 (31.0-37.0) g/dL RDW 12.7 (11.5-15.5) % Plt Count 348 (150-450) k/uL Neutrophils % 58 % Lymphocytes % 31 % Monocytes % 6 % Eosinophils % 3 % Basophils % 1 % Neutrophils # 6.6 (1.3-7.7) k/uL Lymphocytes # 3.6 (1.0-4.8) k/uL Monocytes # 0.6 (0-1.0) k/uL Eosinophils # 0.3 (0-0.7) k/uL Basophils # 0.1 (0-0.2) k/uL Sodium 140 (137-145) mmol/L Potassium 4.2 (3.5-5.1) mmol/L Chloride 105 (98-107) mmol/L Carbon Dioxide 29 (22-30) mmol/L Anion Gap 6 mmol/L BUN 8 (7-17) mg/dL Creatinine 0.56 (0.52-1.04) mg/dL Est GFR (CKD-EPI)AfAm >90 (>60 ml/min/1.73 sqM) Est GFR (CKD-EPI)NonAf >90 (>60 ml/min/1.73 sqM) Glucose 88 (74-99) mg/dL Calcium 9.1 (8.4-10.2) mg/dL Total Bilirubin 0.2 (0.2-1.3) mg/dL AST 18 (14-36) U/L ALT 26 (9-52) U/L Alkaline Phosphatase 59 (38-126) U/L Total Protein 6.8 (6.3-8.2) g/dL Albumin 4.0 (3.5-5.0) g/dL - Radiology Data Radiology results: report reviewed, image reviewed CT soft tissue neck with contrast was obtained. Report was reviewed in its entirety. Impression by Dr. Robles shows mild enlargement of the tonsils consistent with tonsillitis. Normal epiglottis. CT brain without contrast was obtained. Report was reviewed in its entirety. Impression by Dr. Robles shows negative computed tomography scan of the brain. Disposition Clinical Impression: Tonsillitis, Lymphadenopathy of left cervical region Disposition: HOME SELF-CARE Condition: Good Instructions: Lymphadenopathy (ED), Tonsillitis (ED) Additional Instructions: Complete antibiotic prescriptionin full. Follow up with ENT if symptoms do not improve. Follow up with your primary care physician for recheck in 1-2 days. Return immediately for any new, worsening, or concerning symptoms. Prescriptions: Clindamycin HCl 300 mg PO Q8HR #30 cap Is patient prescribed a controlled substance at d/c from ED?: No Referrals: Harsha Price MD [Primary Care Provider] - 1-2 days Eliel Parker DO [Doctor of Osteopathic Medicine] - 1-2 days Time of Disposition: 23:58
[2018-03-23] MEDS ORDERED: methylPREDNISolone SOD SUCCI 125 MG/2 ML VIAL IV STA (21:54)
[2018-03-23] MEDS ORDERED: FAMOTIDINE 20 MG/2 ML VIAL IV STA (21:54)
[2018-03-23 22:36] LABS: Basophils # (A) 0.1 k/uL (0-0.2); Basophils % (A) 1 %; Eosinophils # (A) 0.3 k/uL (0-0.7); Eosinophils % (A) 3 %; HCT 40.4 % (34.0-46.0); HGB 13.5 gm/dL (11.4-16.0); Lymphocytes # (A) 3.6 k/uL (1.0-4.8); Lymphocytes % (A) 31 %; MCH 31.3 pg (25.0-35.0); MCHC 33.5 g/dL (31.0-37.0); MCV 93.3 fL (80.0-100.0); Mean Platelet Volume 6.2; Monocytes # (A) 0.6 k/uL (0-1.0); Monocytes % (A) 6 %; Neutrophils # (A) 6.6 k/uL (1.3-7.7); Neutrophils % (A) 58 %; Platelet Count 348 k/uL (150-450); RBC 4.32 m/uL (3.80-5.40); RDW 12.7 % (11.5-15.5); WBC 11.4 k/uL (3.8-10.6)
[2018-03-23 22:45] LABS: ALT 26 U/L (9-52); AST 18 U/L (14-36); Alkaline Phosphatase 59 U/L (38-126); Anion Gap 6 mmol/L; Blood Urea Nitrogen 8 mg/dL (7-17); Calcium 9.1 mg/dL (8.4-10.2); Carbon Dioxide 29 mmol/L (22-30); Chloride 105 mmol/L (98-107); Glucose 88 mg/dL (74-99); Potassium 4.2 mmol/L (3.5-5.1); Sodium 140 mmol/L (137-145); Total Bilirubin 0.2 mg/dL (0.2-1.3); Total Protein 6.8 g/dL (6.3-8.2)
[2018-03-23 22:52] VITALS: RESP 16
--- NOTE | 2018-03-23 23:08 | CT ---
EXAMINATION TYPE: CT brain wo con DATE OF EXAM: 03/23/2018 COMPARISON: None HISTORY: HANSON, THROAT PAIN AND HOARSNESS CT DLP: 1011.7 mGycm. Automated Exposure Control for Dose Reduction was Utilized. TECHNIQUE: CT scan of the head is performed without contrast. FINDINGS: Ventricles of normal size. There is no mass effect nor midline shift. There is no sign of i ntracranial hemorrhage. There is no evidence of cerebral edema. Calvarium appears intact. Impression negative CT scan of the brain.
--- NOTE | 2018-03-23 23:21 | CT ---
EXAMINATION TYPE: CT soft tissue neck w con DATE OF EXAM: 03/23/2018 10:39 PM COMPARISON: None HISTORY: HANSON, THROAT PAIN AND HOARSNESS CT DLP: 331.1 mGycm Automated exposure control for dose reduction was used. CONTRAST: CT scan of the neck is performed following with IV Contrast, patient injected with 100 mL of Isovue 3 00. Axial images are obtained, coronal and sagittal reformatted images are reviewed. FINDINGS: There is normal branching pattern of the great vessels on the aortic arch. There is no superior media stinal adenopathy. Thyroid gland is symmetric. Trachea appears normal. Epiglottis appears normal. The re is no evidence of a pharyngeal mass. There is some thickening of the tonsils bilaterally. Adenoids appear fairly normal. There is mild thickening of the soft palate posteriorly. The parotid glands are symmetric. Submandibular salivary glands are symmetric. I see no cervical bridger opathy. IMPRESSION: Mild enlargement of the tonsils consistent with tonsillitis. Normal epiglottis.
[2018-03-23] MEDS ORDERED: CLINDAMYCIN 150 MG CAP PO STA (23:55)
[2018-03-24 00:05] VITALS: BP 124/77; PULSE 85
== END 2018-03-24 00:08 | disposition home or self-care (01) ==
LOC: EC 20:52
DX: J03.90 Acute tonsillitis, unspecified (principal); R59.0 Localized enlarged lymph nodes; D72.829 Elevated white blood cell count, unspecified; G43.909 Migraine, unspecified, not intractable, without status migrainosus; J45.909 Unspecified asthma, uncomplicated; G40.909 Epilepsy, unspecified, not intractable, without status epilepticus; F32.9 Major depressive disorder, single episode, unspecified; F41.9 Anxiety disorder, unspecified; F17.200 Nicotine dependence, unspecified, uncomplicated; Z79.51 Long term (current) use of inhaled steroids; Z79.899 Other long term (current) drug therapy; Z88.0 Allergy status to penicillin; Z88.1 Allergy status to other antibiotic agents; Z88.8 Allergy status to other drugs, medicaments and biological substances; Z91.048 Other nonmedicinal substance allergy status; Z91.013 Allergy to seafood; Z91.041 Radiographic dye allergy status
CPT/HCPCS: 36415; 80053; 85025; 87040; 70491; 70450; 99284; 96374; 96375 ×4; J1200; J2765; J2930; J1885; Q9967

== ENCOUNTER 2018-04-25 17:00 | Emergency (ER) | payer MEDICARE, OTHER ==
--- NOTE | 2018-04-25 17:43 | ED ---
General Adult HPI - General Chief complaint: Chest Pain Stated complaint: chest pain Source: patient Mode of arrival: wheelchair Limitations: no limitations - History of Present Illness Initial comments: Dictation was produced using [employer] dictation software. please excuse any grammatical, word or spelling errors. Chief Complaint: 32-year-old female female past medical history of asthma, seizures, DVT with PE presents with chest pain 2 days. History of Present Illness: Patient 32-year-old female presents with chest pain. She allegedly woke with this pain. Denies any trauma to the chest since worse when you press the anterior chest. Cells worsened she takes a deep breath. Patient's history of blood clot secondary to varicose veins. She did get to varicose surgery. Patient denies any lower leg symptoms. Denies any shortness of breath she does have a history of asthma. She put some aspirin and breathing treatment however her symptoms still persisted. She is here today she is worried that she has some sort of life-threatening disease at this time. The ROS documented in this emergency department record has been reviewed and confirmed by me. Those systems with pertinent positive or negative responses have been documented in the HPI. All other systems are other negative and/or noncontributory. - Related Data Home Medications Medication Instructions Recorded Confirmed Lacosamide [Vimpat] 100 mg PO BID 03/01/14 04/25/18 Venlafaxine HCl [Effexor XR] 150 mg PO DAILY 12/10/16 04/25/18 levETIRAcetam [Keppra] 500 mg PO BID 12/10/16 04/25/18 Albuterol Inhaler [Ventolin Hfa 1 - 2 puff INHALATION RT-Q6H PRN 08/16/17 Inhaler] Budesonide/Formoterol Fumarate 2 puff INHALATION RT-BID 08/16/17 04/25/18 [Symbicort 160-4.5 Mcg Inhaler] Allergies Allergy/AdvReac Type Severity Reaction Status Date / Time amoxicillin [Amoxicillin] Allergy Rash/Hives Verified 04/25/18 17:57 azithromycin Allergy Rash/Hives Verified 04/25/18 17:57 Iodinated Contrast- Oral and Allergy Chest Pain Verified 04/25/18 17:57 IV Dye iodine Allergy Chest Pain Verified 04/25/18 17:57 topiramate [From Topamax] Allergy Unknown Verified 04/25/18 17:57 venom-honey bee Allergy Anaphylaxis Verified 04/25/18 17:57 [bee venom (honey bee)] carbamazepine AdvReac INDUCES Verified 04/25/18 17:57 [From Carbatrol] SEIZURES Review of Systems ROS Statement: Those systems with pertinent positive or pertinent negative responses have been documented in the HPI. ROS Other: All systems not noted in ROS Statement are negative. Past Medical History Past Medical History: Asthma, Seizure Disorder Additional Past Medical History / Comment(s): chronic back pain, depression History of Any Multi-Drug Resistant Organisms: None Reported Past Surgical History: Appendectomy, Back Surgery, Hysterectomy Additional Past Surgical History / Comment(s): foot varicose veins Past Psychological History: Anxiety, Depression Smoking Status: Current every day smoker Past Alcohol Use History: None Reported Past Drug Use History: None Reported General Exam - General Exam Comments Initial Comments: PHYSICAL EXAM: General Impression: Alert and oriented x3, not in acute distress HEENT: Normocephalic atraumatic, extra-ocular movements intact, pupils equal and reactive to light bilaterally, mucous membranes moist. Cardiovascular: Heart regular rate and rhythm, S1&S2 audible, no murmurs, rubs or gallops Chest: Lungs clear to auscultation bilaterally, no rhonchi, no wheeze, no rales , tenderness to palpation of the right anterior chest Abdomen: Bowel sounds present, abdomen soft, non-tender, non-distended, no organomegaly Musculoskeletal: Pulses present and equal in all extremities, no peripheral edema Motor: Power 5/5 bilaterally, no focal deficits noted Neurological: CN II-XII grossly intact, no focal motor or sensory deficits noted Skin: Intact with no visualized rashes Psych: Normal affect and mood Limitations: no limitations Course Vital Signs 04/25/18 17:07 Temperature 98.4 F Pulse Rate 89 Respiratory 16 Rate Blood Pressure 122/83 O2 Sat by Pulse 99 Oximetry Medical Decision Making - Medical Decision Making ED course: Old female presents with atypical chest pain. Patient does have positive history of pulmonary emboli. However at this time highly doubt that her symptoms represent this. As upon arrival are within acceptable limits. Patient not have any lower extremity symptoms. EKG is unremarkable. Vital signs are stable. Highly doubt any serious cardiac pulmonary pathology. Laboratory evaluation shows no acute processes. Patient given Jerome. She is reevaluated with improvement of symptoms. Patient told that she likely strained her chest. Her pain is very atypical. No clinical suspicion of acute coronary syndrome or any other life-threatening cardiopulmonary disease. Patient told to take Motrin Tylenol for her symptoms. She is understandable agreeable to plan. Told to follow-up with primary care doctor after discharge. EKG interpretation: Ventricular rate 80, normal sinus rhythm, W[place] interval 124, QRS 88, QTc 431. No [place] prolongation, no QTC prolongation, no ST or T-wave changes noted. Overall, this EKG is unremarkable - Lab Data Result diagrams: 04/25/18 17:42 04/25/18 17:42 Lab Results 04/25/18 04/25/18 04/25/18 Range/Units 17:42 17:42 17:42 WBC 10.1 (3.8-10.6) k/uL RBC 4.96 (3.80-5.40) m/uL Hgb 14.9 (11.4-16.0) gm/dL Hct 46.3 H (34.0-46.0) % MCV 93.2 (80.0-100.0) fL MCH 30.1 (25.0-35.0) pg MCHC 32.3 (31.0-37.0) g/dL RDW 13.1 (11.5-15.5) % Plt Count 409 (150-450) k/uL Neutrophils % 65 % Lymphocytes % 25 % Monocytes % 6 % Eosinophils % 2 % Basophils % 0 % Neutrophils # 6.6 (1.3-7.7) k/uL Lymphocytes # 2.5 (1.0-4.8) k/uL Monocytes # 0.6 (0-1.0) k/uL Eosinophils # 0.2 (0-0.7) k/uL Basophils # 0.0 (0-0.2) k/uL Sodium 141 (137-145) mmol/L Potassium 4.4 (3.5-5.1) mmol/L Chloride 105 (98-107) mmol/L Carbon Dioxide 30 (22-30) mmol/L Anion Gap 6 mmol/L BUN 9 (7-17) mg/dL Creatinine 0.63 (0.52-1.04) mg/dL Est GFR (CKD-EPI)AfAm >90 (>60 ml/min/1.73 sqM) Est GFR (CKD-EPI)NonAf >90 (>60 ml/min/1.73 sqM) Glucose 82 (74-99) mg/dL Calcium 9.4 (8.4-10.2) mg/dL Magnesium 2.2 (1.6-2.3) mg/dL Total Bilirubin 0.3 (0.2-1.3) mg/dL AST 17 (14-36) U/L ALT 31 (9-52) U/L Alkaline Phosphatase 70 (38-126) U/L Troponin I <0.012 (0.000-0.034) ng/mL Total Protein 7.3 (6.3-8.2) g/dL Albumin 4.1 (3.5-5.0) g/dL Disposition Clinical Impression: Strain of chest wall Disposition: HOME SELF-CARE Condition: Good Instructions: Costochondritis (ED) Is patient prescribed a controlled substance at d/c from ED?: No Referrals: Harsha Price MD [Primary Care Provider] - 1-2 days Time of Disposition: 19:03
[2018-04-25] MEDS ORDERED: KETOROLAC 30 MG/ML 1 ML VIAL IVP STA (17:49)
[2018-04-25] MEDS ORDERED: HYDROcodone/APAP 5-325MG 1 EACH TAB PO STA (17:49)
[2018-04-25 18:08] LABS: Basophils % (A) 0 %; Eosinophils # (A) 0.2 k/uL (0-0.7); Eosinophils % (A) 2 %; HCT 46.3 % (34.0-46.0); HGB 14.9 gm/dL (11.4-16.0); Lymphocytes # (A) 2.5 k/uL (1.0-4.8); Lymphocytes % (A) 25 %; MCH 30.1 pg (25.0-35.0); MCHC 32.3 g/dL (31.0-37.0); MCV 93.2 fL (80.0-100.0); Mean Platelet Volume 6.2; Monocytes # (A) 0.6 k/uL (0-1.0); Monocytes % (A) 6 %; Neutrophils # (A) 6.6 k/uL (1.3-7.7); Neutrophils % (A) 65 %; Platelet Count 409 k/uL (150-450); RBC 4.96 m/uL (3.80-5.40); RDW 13.1 % (11.5-15.5); WBC 10.1 k/uL (3.8-10.6)
[2018-04-25 18:15] LABS: ALT 31 U/L (9-52); AST 17 U/L (14-36); Albumin 4.1 g/dL (3.5-5.0); Alkaline Phosphatase 70 U/L (38-126); Anion Gap 6 mmol/L; Blood Urea Nitrogen 9 mg/dL (7-17); Calcium 9.4 mg/dL (8.4-10.2); Carbon Dioxide 30 mmol/L (22-30); Chloride 105 mmol/L (98-107); Glucose 82 mg/dL (74-99); Magnesium 2.2 mg/dL (1.6-2.3); Potassium 4.4 mmol/L (3.5-5.1); Sodium 141 mmol/L (137-145); Total Bilirubin 0.3 mg/dL (0.2-1.3); Total Protein 7.3 g/dL (6.3-8.2)
--- NOTE | 2018-04-25 18:22 | XR ---
EXAMINATION: XR chest 2V DATE AND TIME: 04/25/2018 6:05 PM CLINICAL INDICATION: PHH; Pain TECHNIQUE: Departmental protocol COMPARISON: None FINDINGS: The lungs are clear. The pleural spaces are negative. The cardiac silhouette is not enlarged. The remainder of the mediastinal silhouette is unremarkable. The skeletal structures and soft tissues are negative for acute findings. IMPRESSION: NO ACUTE PROCESS.
[2018-04-25 19:17] VITALS: BP 103/57; PULSE 78; RESP 18; TEMP 98.2
== END 2018-04-25 19:15 | disposition home or self-care (01) ==
LOC: EC 17:00
DX: S29.011A Strain of muscle and tendon of front wall of thorax, initial encounter (principal); G40.909 Epilepsy, unspecified, not intractable, without status epilepticus; J45.909 Unspecified asthma, uncomplicated; F32.9 Major depressive disorder, single episode, unspecified; F41.9 Anxiety disorder, unspecified; F17.200 Nicotine dependence, unspecified, uncomplicated; Z79.51 Long term (current) use of inhaled steroids; Z79.899 Other long term (current) drug therapy; Z88.0 Allergy status to penicillin; Z91.030 Bee allergy status; Z91.041 Radiographic dye allergy status; Z88.8 Allergy status to other drugs, medicaments and biological substances; Z88.1 Allergy status to other antibiotic agents; Z86.718 Personal history of other venous thrombosis and embolism; Z86.711 Personal history of pulmonary embolism
CPT/HCPCS: 36415; 93005; 80053; 83735; 84484; 85025; 71046; 99285; 96374; J1885

== ENCOUNTER → 2018-06-13 | Outpatient (CLI) | payer MEDICARE, OTHER | END | disposition home or self-care (01) | LOC: RADMRIMAIN 11:01 | PROVIDERS: ATTEND Psychiatry & Neurology Neurology | DX: Z53.9 Procedure and treatment not carried out, unspecified reason (principal) ==

== ENCOUNTER → 2018-06-13 | Outpatient (CLI) | payer MEDICARE, OTHER ==
--- NOTE | 2018-06-13 13:04 | MR ---
EXAMINATION TYPE: MR brain and iac wo/w con DATE OF EXAM: 06/13/2018 COMPARISON: CT brain March 23, 2018. HISTORY: Hearing loss left-sided. Seizure. TECHNIQUE: Multiplanar, multisequence images of the brain and brainstem as well as internal auditory canals are all performed without and with IV contrast, utilizing 8.5 mL intravenous Gadavist . FINDINGS: Diffusion weighted images demonstrate no evidence of a recent infarct or other diffusion ab normality. There is no worrisome extra-axial fluid collection. The ventricular system and cisternal spaces are normal in size and appearance. The brain volume is age appropriate. There are few scatte red foci of T2 hyperintensity seen in the anterior frontal lobes bilaterally, roughly 6-9 small lesio ns measuring 3 mm or smaller in size are noted. Midline structures demonstrate normal morphology. The craniocervical junction appears within normal limits. Post contrast images demonstrate no abnormal enhancement. The dural venous sinuses appear pa tent. There is mild mucosal thickening in the right maxillary sinus. Remainder paranasal sinuses are clear. The globes are intact bilaterally. Patchy increased fluid signal bilateral mastoid air cells is present. Vestibulocochlear complexes are symmetric and felt within normal limits. There is no suspicious enhancing cerebellopontine angle mas s identified bilaterally. IMPRESSION: 1. Increased fluid signal bilateral mastoid air cells could reflect bilateral mastoiditis, correlate clinically. No suspicious enhancing cerebellopontine angle mass is noted bilaterally. 2. Mild to minimal nonspecific white matter changes without suspicious enhancement
== END ==
LOC: RADMRIMAIN 07:56
PROVIDERS: ATTEND Otolaryngology
DX: R90.89 Other abnormal findings on diagnostic imaging of central nervous system (principal)
CPT/HCPCS: 70553; A9585

== ENCOUNTER 2018-06-14 17:28 | Emergency (ER) | payer MEDICARE, OTHER ==
[2018-06-14 17:33] VITALS: BP 119/80; PULSE 89; RESP 16; TEMP 98.4
--- NOTE | 2018-06-14 17:54 | XR ---
EXAMINATION TYPE: XR foot complete LT DATE OF EXAM: 06/14/2018 COMPARISON: NONE HISTORY: Foot pain TECHNIQUE: 3 views FINDINGS: There is a screw at the first metatarsal head related to old osteotomy surgery. There is wi re suture at the head of the proximal phalanx of the second toe. I see no fracture nor dislocation. J oint spaces are normal. There are no erosions. IMPRESSION: No acute abnormality of the left foot. No metatarsal fracture seen.
--- NOTE | 2018-06-14 17:57 | ED ---
Lower Extremity Injury HPI - General Chief Complaint: Extremity Injury, Lower Stated Complaint: lt foot injury Time Seen by Provider: 06/14/18 17:31 Source: patient Mode of arrival: wheelchair Limitations: no limitations - History of Present Illness Initial Comments: 32-year-old female past medical history of previous left foot surgeries presenting today for chief complaint of left foot injury. Patient states that just prior to arrival she had dropped a cutting board on her left lateral aspect of her foot. Patient noticed a bruise at this area. Patient was concerned of fracture seeing it was painful with inhalation and presented for evaluation. Patient denies any numbness, tingling, loss sensation. Patient denies injury to any other area of the lower extremity. Patient denies fall. Upon arrival patient is well-appearing, ambulating. VS within acceptable limits. - Related Data Home Medications Medication Instructions Recorded Confirmed Lacosamide [Vimpat] 100 mg PO BID 03/01/14 04/25/18 Venlafaxine HCl [Effexor XR] 150 mg PO DAILY 12/10/16 04/25/18 levETIRAcetam [Keppra] 500 mg PO BID 12/10/16 04/25/18 Albuterol Inhaler [Ventolin Hfa 1 - 2 puff INHALATION RT-Q6H PRN 08/16/17 Inhaler] Budesonide/Formoterol Fumarate 2 puff INHALATION RT-BID 08/16/17 04/25/18 [Symbicort 160-4.5 Mcg Inhaler] Allergies Allergy/AdvReac Type Severity Reaction Status Date / Time amoxicillin [Amoxicillin] Allergy Rash/Hives Verified 06/14/18 17:33 azithromycin Allergy Rash/Hives Verified 06/14/18 17:33 Iodinated Contrast- Oral and Allergy Chest Pain Verified 06/14/18 17:33 IV Dye iodine Allergy Chest Pain Verified 06/14/18 17:33 topiramate [From Topamax] Allergy Unknown Verified 06/14/18 17:33 venom-honey bee Allergy Anaphylaxis Verified 06/14/18 17:33 [bee venom (honey bee)] carbamazepine AdvReac INDUCES Verified 06/14/18 17:33 [From Carbatrol] SEIZURES Review of Systems ROS Statement: Those systems with pertinent positive or pertinent negative responses have been documented in the HPI. ROS Other: All systems not noted in ROS Statement are negative. Past Medical History Past Medical History: Asthma, Seizure Disorder Additional Past Medical History / Comment(s): chronic back pain, depression History of Any Multi-Drug Resistant Organisms: None Reported Past Surgical History: Appendectomy, Back Surgery, Hysterectomy Additional Past Surgical History / Comment(s): foot varicose veins Past Psychological History: Anxiety, Depression Smoking Status: Current every day smoker Past Alcohol Use History: None Reported Past Drug Use History: None Reported General Exam - General Exam Comments Initial Comments: General: The patient is awake and alert, in no distress, and does not appear acutely ill. Eye: +3 mm pupils are equal, round and reactive to light, extra-ocular movements are intact. No nystagmus. There is normal conjunctiva bilaterally. No signs of icterus. Neck: The neck is supple, there is no tenderness or JVD. Cardiovascular: There is a regular rate and rhythm. No murmur, rub or gallop is appreciated. Respiratory: Lungs are clear to auscultation, respirations are non-labored, breath sounds are equal. No wheezes, stridor, rales, or rhonchi. Musculoskeletal: Upon inspection of the feet bilaterally, there is a contusion of the left lateral foot. There is no evidence of soft tissue swelling. Patient able to fully range at the digits of the feet bilaterally equal comparison. Patient is tender to palpation over the contusion. Normal ROM, no tenderness of the LE equal b/l at knee, hip and ankle. Strength 5/5. Sensation intact distal and proximal to the area of injury, equal and comparison with the unaffected side. DP pulses equal bilaterally 2+. Capillary refill <2 seconds. Neurological: A&O x 3. CN II-XII intact, There are no obvious motor or sensory deficits. Coordination appears grossly intact. Speech is normal. Skin: Skin is warm and dry and no rashes or lesions are noted. Psychiatric: Cooperative, appropriate mood & affect, normal judgment. Limitations: no limitations Course Vital Signs 06/14/18 17:31 Temperature 98.4 F Pulse Rate 89 Respiratory 16 Rate Blood Pressure 119/80 O2 Sat by Pulse 98 Oximetry Medical Decision Making - Medical Decision Making 32-year-old female complaining of left lateral foot pain after dropping cutting board on toe. She Norvasc intact. Physical exam revealed small contusion of left lateral foot. There is no pain to palpation over the area of the Lisfranc joint. X-ray negative for acute osseous process. Patient is placed in a surgical boot for comfort, given ibuprofen 800 mg for pain management. This time I do feel patient is stable for discharge with follow-up with primary care provider in the next 1-2 days if symptoms persist. Return parameters were discussed the patient who verbalized understanding. Case discussed with attending provider Dr. Scruggs. Patient discharged stable condition appearing well and I questioned at that time. Disposition Clinical Impression: Contusion of left foot Disposition: HOME SELF-CARE Condition: Good Instructions (If sedation given, give patient instructions): Foot Contusion (ED ) Additional Instructions: Please use medication as discussed. Please follow-up with family doctor in the next 2 days of symptoms have not improved. Please return to emergency room if the symptoms increase or worsen or for any other concerns. Is patient prescribed a controlled substance at d/c from ED?: No Referrals: Harsha Price MD [Primary Care Provider] - 1-2 days Time of Disposition: 18:02
[2018-06-14] MEDS ORDERED: IBUPROFEN 800 MG TAB PO STA (18:02)
== END 2018-06-14 18:19 | disposition home or self-care (01) ==
LOC: EC 17:28
DX: S90.32XA Contusion of left foot, initial encounter (principal); J45.909 Unspecified asthma, uncomplicated; G40.909 Epilepsy, unspecified, not intractable, without status epilepticus; F41.9 Anxiety disorder, unspecified; F32.9 Major depressive disorder, single episode, unspecified; F17.200 Nicotine dependence, unspecified, uncomplicated; Z79.51 Long term (current) use of inhaled steroids; Z79.899 Other long term (current) drug therapy; Z88.0 Allergy status to penicillin; Z88.1 Allergy status to other antibiotic agents; Z91.041 Radiographic dye allergy status; Z88.8 Allergy status to other drugs, medicaments and biological substances; Z91.030 Bee allergy status; W20.8XXA Other cause of strike by thrown, projected or falling object, initial encounter
CPT/HCPCS: 99283